=== PATIENT | male | born 1985 | race Two or more races ===

== ENCOUNTER 2019-06-17 16:49 | Emergency (ER) | payer OTHER ==
[~2019-06-17] VITALS: Ht 185.4 cm; Wt 81.6 kg
--- NOTE | 2019-06-17 17:10 | NUR ---
[place] [facility] AT BEDSIDE FOR MSE.
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
[2019-06-17] MEDS ORDERED: TRAMADOL HCL 50 MG TABLET ONE (17:24)
[2019-06-17] MEDS ORDERED: TRAMADOL HCL 50 MG TABLET PO ONE (17:30)
--- NOTE | 2019-06-17 17:38 | NUR ---
Patient discharged to home in stable conditon. Written and verbal after care instructions given. Patient verbalizes understanding of instructions. ALL BELONGINGS W/ PT. PT SELF-AMBULATED USING CRUTCHES W/O DIFFICULTY.
[2019-06-17 17:39] VITALS: BP 131/72
== END 2019-06-17 17:47 | disposition home or self-care (01) ==
LOC: ER 16:52
DX: S00.83XA Contusion of other part of head, initial encounter (principal); S82.891A Other fracture of right lower leg, initial encounter for closed fracture; M79.631 Pain in right forearm; N18.9 Chronic kidney disease, unspecified; F17.290 Nicotine dependence, other tobacco product, uncomplicated; W21.11XA Struck by baseball bat, initial encounter; Y93.89 Activity, other specified; Y92.89 Other specified places as the place of occurrence of the external cause; Y99.8 Other external cause status
CPT/HCPCS: 70030-TC; A4663

== ENCOUNTER 2020-05-07 14:31 | Emergency (ER) | payer OTHER ==
[~2020-05-07] VITALS: Ht 185.4 cm; Wt 83.9 kg
[2020-05-07] MEDS ORDERED: ZOFRAN (14:41)
[2020-05-07] MEDS ORDERED: [UNRECOGNIZED DRUG - REMARK] (14:41)
[2020-05-07] MEDS ORDERED: NEXIUM (14:41)
[2020-05-07] MEDS ORDERED: PANTOPRAZOLE SODIUM 40 MG TABLET.DR PO ONE ×2 (15:00→15:02)
[2020-05-07] MEDS ORDERED: ONDANSETRON ODT 4 MG TAB.RAPDIS SL ONE (15:00)
[2020-05-07] MEDS ORDERED: LORAZEPAM 0.5 MG TABLET PO ONE (15:00)
[2020-05-07] MEDS ORDERED: LORAZEPAM 1 MG TABLET ONE (15:02)
[2020-05-07] MEDS ORDERED: ONDANSETRON ODT 4 MG TAB.RAPDIS ONE (15:03)
--- NOTE | 2020-05-07 15:30 | NUR ---
Patient given written and verbal discharge instructions. Patient verbalizes understanding of instructions. Patient is ambulatory with steady gait. Refuses offer of long-term placement. Patient given list of available shelters in surrounding area.
--- NOTE | 2020-05-07 15:41 | NUR ---
pt requesting, pt ate 2 hospital sandwich with good apetite, no n/v.
[2020-05-07 15:44] VITALS: BP 141/81
== END 2020-05-07 15:45 | disposition home or self-care (01) ==
LOC: ER 14:35
DX: S00.83XA Contusion of other part of head, initial encounter (principal); Y04.2XXA Assault by strike against or bumped into by another person, initial encounter; Y92.89 Other specified places as the place of occurrence of the external cause; G47.00 Insomnia, unspecified; R10.13 Epigastric pain; R11.2 Nausea with vomiting, unspecified; K29.70 Gastritis, unspecified, without bleeding; F10.20 Alcohol dependence, uncomplicated; Z59.0 Homelessness
CPT/HCPCS: A4663; Q0162